=== PATIENT | male | born 1955 | race African-American/Black ===

== ENCOUNTER 2016-08-19 15:21 | Emergency (ER) | payer MEDICARE, BC ==
[2016-08-19 15:59] VITALS: BP 151/91
--- NOTE | 2016-08-19 16:11 | ER Document Report ---
ED Medical Screen (RME) - General Chief Complaint: Laceration Stated Complaint: THUMB INJURY Mode of Arrival: Ambulatory Information source: Patient Notes: 61 y/o M presents to ED c/o laceration to left thumb on dryer. Denies pain but states is on coumadin. Last tetanus vaccination was last year. I have greeted and performed a rapid initial assessment of this patient. A comprehensive ED assessment and evaluation of the patient, analysis of test results and completion of the medical decision making process will be conducted by additional ED providers. TRAVEL OUTSIDE OF THE [place] IN LAST 30 DAYS: No - Related Data Allergies/Adverse Reactions: No Known Allergies Allergy (Verified 08/19/16 15:58) Past Medical History - Social History Chew tobacco use (# tins/day): No Frequency of alcohol use: None Drug Abuse: None - Past Medical History Cardiac Medical History: Reports: Hx Congestive Heart Failure, Hx Coronary Artery Disease, Hx DVT, Hx Hypercholesterolemia, Hx Hypertension Renal/ Medical History: Reports: Hx Benign Prostatic Hyperplasia, Hx Kidney Stones. Denies: Hx Peritoneal Dialysis GI Medical History: Reports: Hx Gastroesophageal Reflux Disease Past Surgical History: Reports: Hx Abdominal Surgery - part of intestine removed , Hx Cardiac Surgery, Hx Open Heart Surgery - Aug 2012 - Immunizations Immunizations up to date: Yes Hx Diphtheria, Pertussis, Tetanus Vaccination: Yes Physical Exam - Vital signs Vitals: Temp Pulse Resp BP Pulse Ox 98.1 F 78 18 151/91 H 98 08/19/16 15:56 08/19/16 15:56 08/19/16 15:56 08/19/16 15:56 08/19/16 15:56 - General General appearance: Appears well, Alert In distress: None Course - Vital Signs Vital signs: Temp Pulse Resp BP Pulse Ox 98.1 F 78 18 151/91 H 98 08/19/16 15:56 08/19/16 15:56 08/19/16 15:56 08/19/16 15:56 08/19/16 15:56
--- NOTE | 2016-08-19 20:54 | ER Document Report ---
HPI - HPI Patient complains to provider of: finger laceration Onset: This afternoon Onset/Duration: Sudden Quality of pain: Achy Pain Level: 1 Context: Patient states that he was working on a dryer and cut his thumb on a stand. Patient complains of continued bleeding to his wound. Patient does take Coumadin. Patient's last PT was checked 5 days ago and did not require any adjustment. Associated Symptoms: Other - Thumb laceration Exacerbated by: Denies Relieved by: Denies Similar symptoms previously: No Recently seen / treated by doctor: No - ROS ROS below otherwise negative: Yes Systems Reviewed and Negative: Yes All other systems reviewed and negative - CONSTITUTIONAL Constitutional: DENIES: Fever - MUSCULOSKELETAL Musculoskeletal: REPORTS: Extremity pain - DERM Skin Color: Normal Skin Problems: Laceration Past Medical History - General Information source: Patient - Social History Smoking Status: Never Smoker Chew tobacco use (# tins/day): No Frequency of alcohol use: None Drug Abuse: None Occupation: none Lives with: Spouse/Significant other Family History: Reviewed & Not Pertinent Patient has suicidal ideation: No Patient has homicidal ideation: No - Past Medical History Cardiac Medical History: Reports: Hx Congestive Heart Failure, Hx Coronary Artery Disease, Hx DVT, Hx Hypercholesterolemia, Hx Hypertension, Hx Pulmonary Embolism Renal/ Medical History: Reports: Hx Benign Prostatic Hyperplasia, Hx Kidney Stones. Denies: Hx Peritoneal Dialysis GI Medical History: Reports: Hx Gastroesophageal Reflux Disease Past Surgical History: Reports: Hx Abdominal Surgery - part of intestine removed , Hx Cardiac Surgery, Hx Open Heart Surgery - Aug 2012 - Immunizations Immunizations up to date: Yes Hx Diphtheria, Pertussis, Tetanus Vaccination: Yes Vertical Provider Document - CONSTITUTIONAL Agree With Documented VS: Yes Exam Limitations: No Limitations General Appearance: WD/WN, No Apparent Distress - INFECTION CONTROL TRAVEL OUTSIDE OF THE [place] IN LAST 30 DAYS: No - HEENT HEENT: Atraumatic, Normocephalic - NECK Neck: Normal Inspection - RESPIRATORY Respiratory: Breath Sounds Normal, No Respiratory Distress O2 Sat by Pulse Oximetry: 98 - CARDIOVASCULAR Cardiovascular: Regular Rate, Regular Rhythm - MUSCULOSKELETAL/EXTREMETIES Musculoskeletal/Extremeties: MAEW - NEURO Level of Consciousness: Awake, Alert, Appropriate Motor/Sensory: No Motor Deficit - DERM Integumentary: Warm, Dry, Laceration - Patient with avulsion laceration to dorsal aspect of left thumb, patient with mild capillary bleeding Course - Re-evaluation Re-evalutation: 08/19/16 20:[address] Min who agrees with plan of care - Vital Signs Vital signs: Temp Pulse Resp BP Pulse Ox 98.1 F 78 18 151/91 H 98 08/19/16 15:56 08/19/16 15:56 08/19/16 15:56 08/19/16 15:56 08/19/16 15:56 - Laboratory Laboratory results interpreted by me: 08/19/16 21:45 Labs- All tests 24 hr 08/19/16 20:51 PT 26.9 H INR 2.37 Discharge - Discharge Clinical Impression: avulsion laceration, Hx of essential hypertension Condition: Stable Disposition: HOME, SELF-CARE Instructions: Avulsion Injury ([facility]) Additional Instructions: Return immediately for any new or worsening symptoms Followup with your primary care provider, call Monday to make a followup appointment Forms: Elevated Blood Pressure
[2016-08-19 21:05] LABS: PROTHROMBIN TIME 26.9 SEC (11.4-15.4)
== END 2016-08-19 22:36 | disposition home or self-care (01) ==
LOC: ER 15:21
DX: S61.012A Laceration without foreign body of left thumb without damage to nail, initial encounter (principal); W45.8XXA Other foreign body or object entering through skin, initial encounter; Y93.89 Activity, other specified; I10 Essential (primary) hypertension; I25.10 Atherosclerotic heart disease of native coronary artery without angina pectoris; Z86.711 Personal history of pulmonary embolism; Z86.718 Personal history of other venous thrombosis and embolism; Z79.01 Long term (current) use of anticoagulants
CPT/HCPCS: 36415; 85610; 99283

== ENCOUNTER → 2017-05-01 | Outpatient (CLI) | payer MEDICARE, BC ==
--- NOTE | 2017-05-01 11:02 | RADIOLOGY REPORT (SQ) ---
EXAM DESCRIPTION: CT HEAD WITHOUT COMPLETED DATE/TIME: 05/01/2017 8:37 am REASON FOR STUDY: NUMBNESS AND TINGLING OF LEFT SIDE OF FACE (R20.0) R20.0 ANESTHESIA OF SKIN COMPARISON: None. TECHNIQUE: Axial images acquired through the brain without intravenous contrast. Images reviewed wi th bone, brain and subdural windows. Images stored on PACS. All CT scanners at this facility use dose modulation, iterative reconstruction, and/or weight based d osing when appropriate to reduce radiation dose to as low as reasonably achievable (ALARA). [facility]: Dose Right [facility]: CareDose [facility]: Dose Right [facility]: Teradose 4D [facility]: Smart SIGFOX RADIATION DOSE: Up-to-date CT equipment and radiation dose reduction techniques were employed. CTDIv ol: 49.0 mGy. DLP: 881 mGy-cm. mGy. LIMITATIONS: None. FINDINGS: VENTRICLES: Normal size and contour. CEREBRUM: No masses. No hemorrhage. No midline shift. No evidence for acute infarction. 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 CEREBELLUM: No masses. No hemorrhage. No alteration of density. No evidence for acute infarction. EXTRAAXIAL SPACES: No fluid collections. No masses. ORBITS AND GLOBE: No intra- or extraconal masses. Normal contour of globe without masses. CALVARIUM: No fracture. PARANASAL SINUSES: No fluid or mucosal thickening. SOFT TISSUES: No mass or hematoma. OTHER: No other significant finding. IMPRESSION: Mild small vessel ischemic changes. No acute findings. EVIDENCE OF ACUTE STROKE: NO. COMMENT: Quality ID # [id number]: Final reports with documentation of one or more dose reduction techniques (e.g., Automated exposure control, adjustment of the mA and/or kV according to patient size, use of iterative reconstruction technique) TECHNICAL DOCUMENTATION: JOB ID: [id number] [email or web address]- All Rights Reserved
--- NOTE | 2017-05-01 11:52 | RADIOLOGY REPORT (SQ) ---
EXAM DESCRIPTION: CAROTID DOPPLER COMPLETED DATE/TIME: 05/01/2017 8:38 am REASON FOR STUDY: ANESTHESIA OF SKIN R20.0 ANESTHESIA OF SKIN COMPARISON: None. TECHNIQUE: Grayscale ultrasound, Doppler velocity and spectra, and color Doppler images acquired of the extra-cranial carotid and vertebral arteries. Images stored on PACS. LIMITATIONS: None. FINDINGS: RIGHT CAROTID CCA Velocities: Within normal limits. ICA Velocities Peak systolic 0.53 m/s. End diastolic 0.18 m/s. Proximal ICA/CCA peak systolic ratio 0.6. Spectra normal. No significant plaque. LEFT CAROTID CCA Velocities: Within normal limits. ICA Velocities Peak systolic 0.72 m/s. End diastolic 0.24 m/s. Proximal ICA/CCA peak systolic ratio 0.8. Spectra normal. No significant plaque. VERTEBRAL ARTERIES: Antegrade flow. Normal waveforms. SUBCLAVIAN ARTERIES: Not imaged. OTHER: No other significant finding. IMPRESSION: NO HEMODYNAMICALLY SIGNIFICANT STENOSIS. COMMENT: Quality ID #[id number]: Velocity criteria are extrapolated from the diameter data as defined by t he Society of Radiologists in Ultrasound Consensus Conference. Radiology 2003: 229; 340-346. TECHNICAL DOCUMENTATION: JOB ID: [id number] [employer]- All Rights Reserved
== END ==
LOC: SP 07:43
PROVIDERS: ATTEND Physician Assistant
DX: R20.0 Anesthesia of skin (principal)
CPT/HCPCS: 70450; 93880

== ENCOUNTER → 2017-12-22 | Outpatient (CLI) | payer MEDICARE, BC ==
--- NOTE | 2017-12-22 12:58 | RADIOLOGY REPORT (SQ) ---
EXAM DESCRIPTION: CHEST PA/LATERAL COMPLETED DATE/TIME: 12/22/2017 9:22 am REASON FOR STUDY: COUGH COMPARISON: 05/07/2017 EXAM PARAMETERS: NUMBER OF VIEWS: two views TECHNIQUE: Digital Frontal and Lateral radiographic views of the chest acquired. RADIATION DOSE: NA LIMITATIONS: none FINDINGS: LUNGS AND PLEURA: No opacities, masses or pneumothorax. No pleural effusion. MEDIASTINUM AND HILAR STRUCTURES: No masses or contour abnormalities. HEART AND VASCULAR STRUCTURES: Heart normal size. No evidence for failure. BONES: No acute findings. HARDWARE: Sternotomy wires. OTHER: No other significant finding. IMPRESSION: NO SIGNIFICANT RADIOGRAPHIC FINDING IN THE CHEST. TECHNICAL DOCUMENTATION: JOB ID: [id number] [employer]- All Rights Reserved Reading location - IP/workstation name: [email or web address]
== END ==
LOC: OD 09:05
PROVIDERS: ATTEND Physician Assistant
DX: R05 Cough (principal)
CPT/HCPCS: 71046

== ENCOUNTER 2018-01-29 19:44 | Emergency (ER) | payer MEDICARE, BC ==
[2018-01-29] MEDS ORDERED: NORMAL SALINE 1000 ML 500 ML IV ONE (20:05)
--- NOTE | 2018-01-29 20:07 | ER Document Report ---
ED Medical Screen (RME) - General Chief Complaint: Urinary Problem Stated Complaint: URINARY PROBLEM Time Seen by Provider: 01/29/18 20:04 Notes: 62 years old male presents today with hematuria. He woke up this morning noted some blood in the urine, visited primary care office, diagnosed as UTI and put on Flomax 2. Came home last 2 or 3 times the urine was normal and again started to bleed therefore concerned and came to the ED. Denies any pain or discomfort. Denies any fever chills. Denies any nausea vomiting. Past history of TURP done. TRAVEL OUTSIDE OF THE [place] IN LAST 30 DAYS: No - Related Data Allergies/Adverse Reactions: No Known Allergies Allergy (Verified 05/07/17 02:30) Past Medical History - Social History Chew tobacco use (# tins/day): No Frequency of alcohol use: None Drug Abuse: None - Past Medical History Cardiac Medical History: Reports: Hx Congestive Heart Failure, Hx Coronary Artery Disease, Hx DVT, Hx Hypercholesterolemia, Hx Hypertension, Hx Pulmonary Embolism Renal/ Medical History: Reports: Hx Benign Prostatic Hyperplasia, Hx Kidney Stones. Denies: Hx Peritoneal Dialysis GI Medical History: Reports: Hx Gastroesophageal Reflux Disease Past Surgical History: Reports: Hx Abdominal Surgery - part of intestine removed , Hx Cardiac Surgery, Hx Open Heart Surgery - Aug 2012 - Immunizations Immunizations up to date: Yes Hx Diphtheria, Pertussis, Tetanus Vaccination: Yes History of Influenza Vaccine for 04/2017 - 08/2017 Season: No Physical Exam - Vital signs Vitals: Temp Pulse Resp BP Pulse Ox 97.6 F 78 16 163/89 H 95 01/29/18 19:54 01/29/18 19:54 01/29/18 19:54 01/29/18 19:54 01/29/18 19:54 Course - Vital Signs Vital signs: Temp Pulse Resp BP Pulse Ox 97.6 F 78 16 163/89 H 95 01/29/18 19:54 01/29/18 19:54 01/29/18 19:54 01/29/18 19:54 01/29/18 19:54 Doctor's Discharge - Discharge Referrals: ALLYSON CASTRO PA-C [Primary Care Provider] - Follow up as needed
[2018-01-29 20:32] LABS: APPEARANCE,URINE SLIGHTLY-CLOUDY; BILIRUBIN,URINE NEGATIVE (NEGATIVE); COLOR,URINE RED; GLUCOSE, URINE 50 mg/dL (NEGATIVE); KETONES,URINE NEGATIVE (NEGATIVE); LEUKOCYTE ESTERASE,URINE NEGATIVE (NEGATIVE); NITRITE,URINE POSITIVE (NEGATIVE); PROTEIN,URINE 100 mg/dL (NEGATIVE); URINE SPECIFIC GRAVITY 1.006; UROBILINOGEN,URINE NEGATIVE mg/dL (<2.0)
[2018-01-29 20:52] LABS: ABSOLUTE EOSINOPHILS # (AUTO) 0.1 10^3/uL (0.0-0.6); ABSOLUTE LYMPHOCYTES (AUTO) 1.9 10^3/uL (0.5-4.7); ABSOLUTE MONOCYTES (AUTO) 0.7 10^3/uL (0.1-1.4); ABSOLUTE NEUT (AUTO) 5.4 10^3/uL (1.7-8.2); BASOPHILS % (AUTO) 0.5 % (0-2); EOSINOPHILS % (AUTO) 0.9 % (0-6); HEMATOCRIT 50.6 % (37.9-51.0); HEMOGLOBIN 16.6 g/dL (13.5-17.0); LYMPHOCYTES % (AUTO) 23.2 % (13-45); MEAN CORPUSCULAR HEMOGLOBIN 27.3 pg (27.0-33.4); MEAN CORPUSCULAR HGB CONC 32.7 g/dL (32.0-36.0); MEAN CORPUSCULAR VOLUME 84 fl (80-97); MONOCYTES % (AUTO) 8.8 % (3-13); PLATELET COUNT 175 10^3/uL (150-450); RED BLOOD COUNT 6.07 10^6/uL (4.35-5.55); RED CELL DISTRIBUTION WIDTH 14.5 % (11.5-14.0); SEGMENTED NEUTROPHILS % (AUTO) 66.6 % (42-78); TOTAL CELLS COUNTED % (AUTO) 100 %; WHITE BLOOD COUNT 8.1 10^3/uL (4.0-10.5)
[2018-01-29 20:59] LABS: PROTHROMBIN TIME 24.6 SEC (11.4-15.4)
--- NOTE | 2018-01-29 21:09 | ER Document Report ---
ED GI/ - General Chief Complaint: Urinary Problem Stated Complaint: URINARY PROBLEM Time Seen by Provider: 01/29/18 20:04 Notes: 62-year-old male to the emergency department chief complaint of hematuria. Patient states that he had a prostate surgery in the past. Develop blood clots. Has been on Coumadin for approximately 5 years. Occasionally he will get blood clots little form. Then he cannot urinate. Went to see his primary care doctor and was told he had a UTI. Began to have more bleeding. Now he cannot pass the urine. Feels like he needs to pee but only thing that comes out as a few dribbles of blood. Fairly uncomfortable at this time. Denies any other symptoms. States that he frequently will get hematuria and will have to stop his Coumadin for a while and it will clear up. Having some pressure in the lower abdomen or around the bladder. TRAVEL OUTSIDE OF THE [place] IN LAST 30 DAYS: No - HPI Patient complains to provider of: Dysuria, Hematuria, Urinary retention Onset: This morning Timing/Duration: Gradual, Worse Quality of pain: Achy, Fullness Severity at maximum: Moderate Severity in ED: Moderate Pain Level: 3 - Related Data Allergies/Adverse Reactions: No Known Allergies Allergy (Verified 05/07/17 02:30) Past Medical History - General Information source: Patient - Social History Smoking Status: Former Smoker Chew tobacco use (# tins/day): No Frequency of alcohol use: None Drug Abuse: None Lives with: Spouse/Significant other Family History: Reviewed & Not Pertinent Patient has suicidal ideation: No Patient has homicidal ideation: No - Past Medical History Cardiac Medical History: Reports: Hx Congestive Heart Failure, Hx Coronary Artery Disease, Hx DVT, Hx Hypercholesterolemia, Hx Hypertension, Hx Pulmonary Embolism Renal/ Medical History: Reports: Hx Benign Prostatic Hyperplasia, Hx Kidney Stones. Denies: Hx Peritoneal Dialysis GI Medical History: Reports: Hx Gastroesophageal Reflux Disease Past Surgical History: Reports: Hx Abdominal Surgery - part of intestine removed , Hx Cardiac Surgery, Hx Open Heart Surgery - Aug 2012 - Immunizations Immunizations up to date: Yes Hx Diphtheria, Pertussis, Tetanus Vaccination: Yes Review of Systems - Review of Systems Constitutional: denies: Fever, Malaise, Weakness EENT: denies: Throat pain, Difficulty swallowing, Mouth pain Cardiovascular: denies: Chest pain, Palpitations, Heart racing Respiratory: denies: Cough, Hurts to breathe, Short of breath, Wheezing Gastrointestinal: Abdominal pain. denies: Diarrhea, Nausea, Vomiting Genitourinary: Burning, Dysuria, Hematuria, Urgency, Retention Male Genitourinary: See HPI Musculoskeletal: denies: Back pain, Joint pain, Muscle pain Hematologic/Lymphatic: Blood clots, Easy bleeding, Easy bruising Physical Exam - Vital signs Vitals: Temp Pulse Resp BP Pulse Ox 97.6 F 78 16 163/89 H 95 01/29/18 19:54 01/29/18 19:54 01/29/18 19:54 01/29/18 19:54 01/29/18 19:54 Interpretation: Normal - General General appearance: Appears well, Alert - HEENT Head: Normocephalic, Atraumatic Eyes: Normal Pupils: PERRL - Respiratory Respiratory status: No respiratory distress Chest status: Nontender Breath sounds: Normal Chest palpation: Normal - Cardiovascular Rhythm: Regular Heart sounds: Normal auscultation Murmur: No - Abdominal Inspection: Normal Distension: No distension Bowel sounds: Normal Tenderness: Tender - Mild tenderness and fullness of the suprapubic area lower abdomen Organomegaly: No organomegaly - Back Back: Normal, Nontender - Neurological Neuro grossly intact: Yes Cognition: Normal Orientation: AAOx4 [place]fall Coma Scale Eye Opening: Spontaneous [place]fall Coma Scale Verbal: Oriented Edita Coma Scale Motor: Obeys Commands Edita Coma Scale Total: 15 Speech: Normal Motor strength normal: LUE, RUE, LLE, RLE Sensory: Normal - Skin Skin Temperature: Warm Skin Moisture: Dry Skin Color: Normal Course - Re-evaluation Re-evalutation: 01/29/18 21:08 Vision having hematuria and dysuria. Will order Seo placement. Check INR and reassess. 01/29/18 22:05 Nurse was unable to get a Seo placed. Bedside ultrasound performed. While doing the ultrasound and pushing down on the bladder patient felt like he needed to urinate. Urinated a very large blood clot and then began to urinate even more. Urinated approximately 350 cc of dark red urine. There is still moderate amount of fluid in the bladder. Patient would like to try and empty bladder on his own. I am going to go ahead and give him some Rocephin, Flomax and Pyridium at this time. If still uncomfortable then may have to try one more time with the Seo catheter. 01/29/18 22:52 Patient is still urinating on his own. Feels much more comfortable at this time. Does not want us to proceed with Seo. I am okay with that at this time. INR is not supratherapeutic. Other labs unremarkable. Urine culture. Antibiotics given. Pyridium given. Flomax given. Feeling okay at this time. Will DC. 01/29/18 22:56 - Vital Signs Vital signs: Temp Pulse Resp BP Pulse Ox 97.6 F 78 16 163/89 H 95 01/29/18 19:54 01/29/18 19:54 01/29/18 19:54 01/29/18 19:54 01/29/18 19:54 - Laboratory Result Diagrams: 01/29/18 20:26 01/29/18 20:26 Laboratory results interpreted by me: 01/29/18 01/29/18 01/29/18 20:19 20:26 20:26 RBC 6.07 H RDW 14.5 H PT 24.6 H Sodium ALT Urine Protein 100 H Urine Glucose (UA) 50 H Urine Blood MODERATE H Urine Nitrite POSITIVE H 01/29/18 20:26 RBC RDW PT Sodium 145.6 H ALT 20 L Urine Protein Urine Glucose (UA) Urine Blood Urine Nitrite Discharge - Discharge Clinical Impression: Hemorrhagic cystitis Condition: Good Disposition: HOME, SELF-CARE Instructions: Hematuria ([facility]), Urinary Retention ([facility]), Urinary Tract Infection ([facility]) Additional Instructions: Continue to take the antibiotics that were prescribed to you by your doctor. In the event that you are unable to urinate, pain is getting worse, or other symptoms please return. Prescriptions: Phenazopyridine HCl [Pyridium 100 Mg Tablet] 100 mg PO TID PRN 5 Days #15 tablet PRN Reason: Bladder Spasms Referrals: ALLYSON CASTRO PA-C [Primary Care Provider] - Follow up as needed
[2018-01-29 21:11] LABS: ALANINE AMINOTRANSFERASE 20 U/L (21-72); ALBUMIN 4.2 g/dL (3.5-5.0); ALKALINE PHOSPHATASE 55 U/L (38-126); ANION GAP 14 (5-19); ASPARTATE AMINO TRANSFERASE 23 U/L (17-59); BILIRUBIN,DIRECT 0.2 mg/dL (0.0-0.4); BILIRUBIN,TOTAL 0.6 mg/dL (0.2-1.3); BLOOD UREA NITROGEN 13 mg/dL (7-20); CALCIUM 9.5 mg/dL (8.4-10.2); CARBON DIOXIDE 26 mmol/L (22-30); CHLORIDE 106 mmol/L (98-107); GLUCOSE 94 mg/dL (75-110); POTASSIUM 4.1 mmol/L (3.6-5.0); SODIUM 145.6 mmol/L (137-145); TOTAL PROTEIN 7.9 g/dL (6.3-8.2)
[2018-01-29] MEDS ORDERED: PHENAZOPYRIDINE HCL 100 MG TABLET PO ONE (22:04)
[2018-01-29] MEDS ORDERED: CEFTRIAXONE INJ 1000 MG VIAL IV ONE (22:04)
[2018-01-29] MEDS ORDERED: TAMSULOSIN HCL 0.4 MG CAP.SR.24H PO ONE (22:05)
[2018-01-29 23:16] VITALS: BP 162/87
== END 2018-01-29 23:16 | disposition home or self-care (01) ==
LOC: ER 19:44
DX: N30.91 Cystitis, unspecified with hematuria (principal); R33.9 Retention of urine, unspecified; Z86.718 Personal history of other venous thrombosis and embolism; Z79.01 Long term (current) use of anticoagulants; Z98.890 Other specified postprocedural states
CPT/HCPCS: 99283; 96360; 51702; 36415; 87086; 85025; 85610; 80053; 81001; C1758; A9270 ×2; J0696; J7030; J3490

== ENCOUNTER → 2018-03-01 | Outpatient (CLI) | payer MEDICARE, BC ==
[2018-03-03 15:10] LABS: PROSTATE SPECIFIC ANTIGEN 1.4 ng/mL (0.0-4.0); PSA % FREE 31.4 % (.); PSA FREE 0.44 ng/mL
== END ==
LOC: OD 09:56
PROVIDERS: ATTEND Urology
DX: N40.1 Benign prostatic hyperplasia with lower urinary tract symptoms (principal)
CPT/HCPCS: 36415; 84154

== ENCOUNTER 2018-10-19 11:13 | Emergency (ER) | payer MEDICARE, BC ==
[2018-10-19 12:59] LABS: INTERNATIONAL RATION (INR) 1.69; PROTHROMBIN TIME 20.7 SEC (11.4-15.4)
[2018-10-19] MEDS ORDERED: ONDANSETRON 4 MG TAB.RAPDIS PO ONE (14:00)
[2018-10-19] MEDS ORDERED: OXYCODONE-ACETAMINOPHEN 5-325 MG TABLET PO ONE (14:00)
[2018-10-19 14:08] LABS: APPEARANCE,URINE CLEAR; BILIRUBIN,URINE NEGATIVE (NEGATIVE); COLOR,URINE AMBER; GLUCOSE, URINE NEGATIVE (NEGATIVE); KETONES,URINE NEGATIVE (NEGATIVE); LEUKOCYTE ESTERASE,URINE NEGATIVE (NEGATIVE); NITRITE,URINE POSITIVE (NEGATIVE); PROTEIN,URINE 30 mg/dL (NEGATIVE); URINE SPECIFIC GRAVITY 1.008
[2018-10-19] MEDS ORDERED: CEPHALEXIN 500 MG CAPSULE PO ONE (14:16)
--- NOTE | 2018-10-19 14:30 | ER Document Report ---
ED General - General Chief Complaint: Inability to Void Stated Complaint: UNABLE TO URINATE Time Seen by Provider: 10/19/18 11:41 Primary Care Provider: ОЛЬГА LEVY MD [Primary Care Provider] - Follow up as needed TRAVEL OUTSIDE OF THE [place] IN LAST 30 DAYS: No - HPI Notes: Patient is a 63-year-old male with a history of pulmonary embolus, on Coumadin, who presents to the emergency department with blood in his urine and difficulty urinating. States he started noting blood in his urine yesterday. Today's having difficulty getting his urine to come out. He stated he could not pee at all this morning, but he now is eating small amounts of urine out. He denies any fevers or chills. No nausea or vomiting. Eating and drinking normally. He is on Coumadin. He states his INR was last checked 3 days ago. He states that there were no medication changes. - Related Data Allergies/Adverse Reactions: No Known Allergies Allergy (Verified 10/19/18 11:14) Past Medical History - General Information source: Patient - Social History Smoking Status: Unknown if Ever Smoked Chew tobacco use (# tins/day): No Frequency of alcohol use: None Drug Abuse: None Family History: Reviewed & Not Pertinent Patient has suicidal ideation: No Patient has homicidal ideation: No - Past Medical History Cardiac Medical History: Reports: Hx Congestive Heart Failure, Hx Coronary Artery Disease, Hx DVT, Hx Hypercholesterolemia, Hx Hypertension, Hx Pulmonary Embolism Renal/ Medical History: Reports: Hx Benign Prostatic Hyperplasia, Hx Kidney Stones. Denies: Hx Peritoneal Dialysis GI Medical History: Reports: Hx Gastroesophageal Reflux Disease Past Surgical History: Reports: Hx Abdominal Surgery - part of intestine removed, Hx Cardiac Surgery, Hx Open Heart Surgery - Aug 2012 - Immunizations Immunizations up to date: Yes Hx Diphtheria, Pertussis, Tetanus Vaccination: Yes Review of Systems - Review of Systems Constitutional: No symptoms reported EENT: No symptoms reported Cardiovascular: No symptoms reported Respiratory: No symptoms reported Gastrointestinal: No symptoms reported Genitourinary: See HPI Musculoskeletal: No symptoms reported Skin: No symptoms reported Neurological/Psychological: No symptoms reported Physical Exam - Vital signs Vitals: Temp Pulse Resp BP Pulse Ox 97.6 F 88 20 174/92 H 100 10/19/18 11:19 10/19/18 11:19 10/19/18 11:19 10/19/18 11:19 10/19/18 11:19 - Notes Notes: Vital signs reviewed, please refer to chart. Patient is normocephalic, atraumatic. Pupils equal round, reactive to light. Neck is supple without meningismus. Heart is regular rate and rhythm. Lungs are clear to auscultation bilaterally. Abdomen is soft, nontender, normoactive bowel sounds throughout. No CVA tenderness. Extremities without cyanosis, clubbing, edema. Peripheral pulses are equal. Skin is warm and dry. Patient is awake, alert, neurological exam is nonfocal. Course - Re-evaluation Re-evalutation: 10/19/18 14:26 Patient presents the emergency department for evaluation of hematuria. We did place a Seo catheter, he had just over 200 cc of bright red, bloody urine immediately. Decision was made to proceed with CBI. The patient does have a urologist. His INR was found only to be 1.6. Given the level of hematuria, we will go ahead and treat him for infection. He was treated with Keflex here. We will send him home with a prescription for the same. At this point, if CBI is able to clear the patient's urine, I do believe it is reasonable to pull his catheter and have him follow-up. If he continues to have hematuria after adequate CBI, will leave Seo in place and have him follow-up. Either way we will treat with antibiotics and pain medication. He is to follow-up with urology next week, return to the ED with worsening or new concerning symptoms. - Vital Signs Vital signs: Temp Pulse Resp BP Pulse Ox 97.6 F 88 20 174/92 H 100 10/19/18 11:19 10/19/18 11:19 10/19/18 11:19 10/19/18 11:19 10/19/18 11:19 - Laboratory Laboratory results interpreted by me: 10/19/18 10/19/18 12:30 12:30 PT 20.7 H Urine Protein 30 H Urine Blood LARGE H Urine Nitrite POSITIVE H Urine Urobilinogen 2.0 H Discharge - Discharge Clinical Impression: Hematuria, Urinary tract infection Condition: Stable Disposition: HOME, SELF-CARE Instructions: Urinary Tract Infection ([facility]), Cephalexin ([facility]) Additional Instructions: Follow-up with urology next week. Take antibiotic and pain medication as prescribed. Return to the emergency department with worsening or new concerning symptoms. Referrals: ОЛЬГА LEVY MD [Primary Care Provider] - Follow up as needed
[2018-10-19] MEDS ORDERED: LIDOCAINE 2% URO-JET 5 ML KIT MM ONE (16:28)
[2018-10-19 20:45] VITALS: BP 159/82
== END 2018-10-19 20:45 | disposition home or self-care (01) ==
LOC: ER 11:13
DX: N39.0 Urinary tract infection, site not specified (principal); R31.0 Gross hematuria; I25.10 Atherosclerotic heart disease of native coronary artery without angina pectoris; I10 Essential (primary) hypertension; Z86.718 Personal history of other venous thrombosis and embolism; Z86.711 Personal history of pulmonary embolism; Z79.01 Long term (current) use of anticoagulants
CPT/HCPCS: 99284; 51702; 36415; 87086; 85610; 81001; A9270 ×3; S0119